=== PATIENT | female | born 1950 | race Hispanic/Latino ===

== ENCOUNTER 2017-09-21 07:34 | Day surgery (SDC) | payer BC, MEDICARE ==
[2017-09-13 10:14] VITALS: BMI 22.1
[2017-09-21] MEDS ORDERED: Propofol 10 mg/ml Inj (20 ML) ONE (08:52)
[2017-09-21] MEDS ORDERED: Lactated Ringer's 1,000 ML IV SCH (09:00)
[2017-09-21 10:53] VITALS: O2SAT 98
[2017-09-21 11:13] VITALS: BP 147/86; PULSE 71
[2017-09-21 11:15] VITALS: TEMP 97.2
[2017-09-21 13:44] VITALS: RESP 16
== END 2017-09-21 11:55 | disposition home or self-care (01) ==
LOC: ENDO 07:34
PROVIDERS: ATTEND Internal Medicine Gastroenterology
DX: Z12.11 Encounter for screening for malignant neoplasm of colon (principal); K29.50 Unspecified chronic gastritis without bleeding; B96.81 Helicobacter pylori [H. pylori] as the cause of diseases classified elsewhere; K64.4 Residual hemorrhoidal skin tags; K64.8 Other hemorrhoids; K63.89 Other specified diseases of intestine; K31.9 Disease of stomach and duodenum, unspecified
CPT/HCPCS: 43239; 45378; 88305; 88312; 88342; J2001; J2704; J3010; J7040; J7120